=== PATIENT | male | born 1985 | race Caucasian/White ===

== ENCOUNTER 2019-08-01 17:59 | Emergency (ER) | payer BC ==
[~2019-08-01] VITALS: Ht 170.2 cm; Wt 65.8 kg
[2019-08-01 18:33] VITALS: BP 130/88
--- NOTE | 2019-08-01 18:34 | NUR ---
ED Nurse Note: Patient walked in to ER c/o low grade fever since Thursday, stated his skin painful on his lower body. AAO x4, VSS at this time, skin is warm to touch.
--- NOTE | 2019-08-01 18:57 | NUR ---
ED Nurse Note: Pt walked in to ED for lower body leg pain and sensitivity. Pt has numbness and burning sensation on lower body when something touches lower body. Pt is alert and orientedx4, ambulatory. Pt is seen by PA.
--- NOTE | 2019-08-01 19:14 | NUR ---
ED Nurse Note: received report from Cynthia KWAN. Pt calm and resting. pt unable to provide urine. provided with urinal. will attempt to collect urine at a later time
[2019-08-01 19:20] LABS: ANION GAP 13 mmol/L (5-15); BLOOD UREA NITROGEN 14 mg/dL (7-18); CALCIUM 8.9 MG/DL (8.5-10.1); CARBON DIOXIDE 28 MMOL/L (21-32); CHLORIDE 105 MMOL/L (98-107); CREATININE 1.2 MG/DL (0.55-1.30); POTASSIUM 3.9 MMOL/L (3.5-5.1); SODIUM 146 MMOL/L (136-145)
[2019-08-01 19:24] LABS: ALANINE AMINOTRANSFERASE 47 U/L (12-78); ALBUMIN 4.3 G/DL (3.4-5.0); ALBUMIN/GLOBULIN RATIO 1.4 (1.0-2.7); ALKALINE PHOSPHATASE 70 U/L (46-116); ASPARTATE AMINO TRANSFERASE 23 U/L (15-37); BILIRUBIN,TOTAL 0.7 MG/DL (0.2-1.0)
[2019-08-01 19:41] LABS: BASOPHILS % (AUTO) 1.4 % (0.0-2.0); EOSINOPHILS % (AUTO) 1.8 % (0.0-3.0); HEMATOCRIT 49.2 % (42.0-52.0); HEMOGLOBIN 16.4 G/DL (14.2-18.0); LYMPHOCYTES % (AUTO) 32.6 % (20.0-45.0); MEAN CORPUSCULAR VOLUME 95 FL (80-99); MONOCYTES % (AUTO) 7.1 % (1.0-10.0); PLATELET COUNT 193 K/UL (150-450); RED BLOOD COUNT 5.16 M/UL (4.70-6.10); RED CELL DISTRIBUTION WIDTH 12.3 % (11.6-14.8); WHITE BLOOD COUNT 6.9 K/UL (4.8-10.8)
--- NOTE | 2019-08-01 20:02 | Emergency Room Report ---
History of Present Illness General Chief Complaint: General Complaint Source: Patient Present Illness HPI 33-year-old male with no significant past medical history here complaining of 3 days of burning sensation in bilateral inner thighs and buttocks as well as outer thighs and subjective fever. Patient reports that he was diagnosed with an anal fissure few days ago and given suppositories as well as Tylenol as well as Colace. Patient denies any chest pain, shortness of breath, headache and dizziness. Denies any recent travel. Denies any pus drainage from the area. Denies any blood in stool. Reports that he sexually active with men and was recently tested negative for all sexually transmitted diseases. Patient reports that years ago he used to take Truvada however did not show a good reaction to it and stopped taking it however both him and his partner have been tested negative for HIV. Reports a sexual encounter is with condoms only. No rashes noted. Patient denies any tingling or numbness in the area. Denies any urinary or bowel incontinence. Also appears to be slightly anxious. Reports that her father who happens to be her primary care doctor told her to come to the emergency room. Denies any penile discharge, denies any testicular swelling. Allergies: Coded Allergies: No Known Allergies (Unverified , 08/01/19) Patient History Past Medical History: see triage record Past Surgical History: none Pertinent Family History: none Immunizations: UTD Reviewed Nursing Documentation: PMH: Agreed; PSxH: Agreed Nursing Documentation-PM Past Medical History: No Stated History Review of Systems All Other Systems: negative except mentioned in HPI Physical Exam Vital Signs Date Time Temp Pulse Resp B/P (MAP) Pulse Ox O2 Delivery O2 Flow Rate FiO2 08/01/19 18:26 97.9 66 14 130/88 (102) 99 Room Air Sp02 EP Interpretation: reviewed, normal General Appearance: no apparent distress, alert, GCS 15, non-toxic Head: normocephalic, atraumatic Eyes: bilateral eye normal inspection, bilateral eye PERRL ENT: hearing grossly normal, normal pharynx, no angioedema, normal voice Neck: full range of motion, supple/symm/no masses Respiratory: chest non-tender, lungs clear, normal breath sounds, no rhonchi, no wheezing, speaking full sentences Cardiovascular #1: regular rate, rhythm, no edema, no murmur Gastrointestinal: soft, no mass, no organomegaly, no peritonitis, no guarding, no hernia, no pulsatile mass Rectal: normal exam, other - No induration noted, no tract formation noted, no pus drainage noted, is not warm to touch Genitourinary: no CVA tenderness Musculoskeletal: back normal, normal range of motion, no calf tenderness, gait/ station normal, non-tender Neurologic: alert, motor strength/tone normal, oriented x3, sensory intact, responsive, speech normal Psychiatric: judgement/insight normal, memory normal, mood/affect normal, no suicidal/homicidal ideation Skin: no rash Lymphatic: no adenopathy Medical Decision Making PA Attestation All my diagnosis and treatment plans were reviewed ad discussed with my supervising physician Dr. Sanabria Diagnostic Impression: Primary Impression: Anal fissure Additional Impression: Skin sensitivity ER Course 33-year-old male with no significant past medical history here complaining of 3 days of burning sensation in bilateral inner thighs and buttocks as well as outer thighs and subjective fever. Patient reports that he was diagnosed with an anal fissure few days ago and given suppositories as well as Tylenol as well as Colace. Patient denies any chest pain, shortness of breath, headache and dizziness. Denies any recent travel. Denies any pus drainage from the area. Denies any blood in stool. Reports that he sexually active with men and was recently tested negative for all sexually transmitted diseases. Patient reports that years ago he used to take Truvada however did not show a good reaction to it and stopped taking it however both him and his partner have been tested negative for HIV. Reports a sexual encounter is with condoms only. No rashes noted. Patient denies any tingling or numbness in the area. Denies any urinary or bowel incontinence. Also appears to be slightly anxious. Reports that her father who happens to be her primary care doctor told her to come to the emergency room. Denies any penile discharge, denies any testicular swelling. Ddx considered but are not limited to : Cellulitis, anal fissure, anal fistula, abscess, superficial infection, abscess Vital signs: are WNL, pt. is afebrile H&PE are most consistent with: Anal fissure, skin sensitivity secondary to anal fissure ORDERS: CBC, CMP, lactic acid, UA, ED INTERVENTIONS: NS bolus DISCHARGE: At this time pt. is stable for d/c to home. Will provide printed patient care instructions, and any necessary prescriptions. Care plan and follow up instructions have been discussed with the patient prior to discharge. At this time no imaging is needed as patient blood work are within normal limits, patient is afebrile, no signs of cellulitis or fistula formation noted. However advised patient return to the emergency room if worsening symptoms in the buttocks for CT scan of the area as well as MRI. If worsening symptoms return to the emergency room. Also follow-up with primary care doctor. Patient agrees with the above treatment. Last Vital Signs Date Time Temp Pulse Resp B/P (MAP) Pulse Ox O2 Delivery O2 Flow Rate FiO2 08/01/19 18:33 66 14 Room Air 08/01/19 18:33 97.9 130/88 99 Status: improved Disposition: HOME, SELF-CARE Condition: Stable Patient Instructions: Anal Fissure, Adult, [id number] Additional Instructions: Follow-up with your primary care doctor, at this time no signs of infection noted your afebrile, continue taking medication as given to you for anal fissure. Reaction to the site of fissure now spreading to legs. At this time subjective fevers noted however temperature is within normal limits. If worsening symptoms, numbness in the buttocks, worsening fever return to emergency room for imaging. Avoid anal intercourse until the symptoms resolve, avoid using latex and, med is made out of latex due to increased sensitivity. Increase oral hydration especially electrolyte water. Avoid eating spicy food. Avoid eating food because of a lot of flatulence such as cauliflower and kale. Increase oral hydration as well as fiber intake. Maddie Ordoñez Aug 01, 2019 20:01
[2019-08-01 20:05] VITALS: BP 130/88
--- NOTE | 2019-08-01 20:05 | NUR ---
ER DISCHARGE NOTE: Patient is cleared to be discharged per ERMD, pt is aox4, on room air, with stable vital signs. pt was given dc and prescription instructions, pt was able to verbalize understanding, pt id band and iv site removed without complications. pt is able to ambulate with steady gait. pt took all belongings.
== END 2019-08-01 20:05 | disposition home or self-care (01) ==
LOC: EMR 20:05
DX: K60.2 Anal fissure, unspecified (principal); T78.40XA Allergy, unspecified, initial encounter; X58.XXXA Exposure to other specified factors, initial encounter
CPT/HCPCS: 36415; 80053; 83605; 85025; 85610; 85730; 96360; 99284; J7030